=== PATIENT | male | born 1975 | race Caucasian/White ===

== ENCOUNTER 2025-07-31 09:15 | Emergency (ER) | payer OTHER, SELFPAY ==
--- OUTSIDE RECORDS SUMMARY | 2025-07-31 09:17 | XMS_ITS | Clinical Summary ---
Author Organization [facility] Address [address] [place] [id number] Care Team Providers Care Telephone Operator Receptionist Name Role Phone Unavailable Primary Care Provider Unavailabl e Social History Tobacco Use Types Packs/Day Years Used Date Smoking Tobacco: Never Assessed Sex and Gender Information Value Date Recorded Sex Assigned at Not on file Legal Sex Male 8:11 PM CDT Gender Identity Not on file Sexual Orientation Not on file Plan of Treatment Health Maintenance Due Date Last Done Comments Colorectal Cancer Screening Colonoscopy (10 Years) 1976 Annual Physical 1979 Hepatitis C 1994 DTaP, Tdap and Td Vaccines ( 1 - Tdap) 1995 Hepatitis B Vaccines (1 of 3 - 19+ 3-dose series) 1995 COVID-19 Vaccine ( - 2023-2 5 season) 2025 Influenza Adult (#1) 2025 Meningococcal B Vaccine Aged Out No l onger eligible based on patient's age to complete this topic Meningococcal Vaccine Aged Out No atif deirdre eligible based on patient's age to complete this topic Pneumococcal Vaccine: Pediat rics (0 to 5 Years) and At-Risk Patients (6 to 49 Years) Aged Out No longer eligible b ased on patient's age to complete this topic RSV Immunizations Under 20 Months Aged Out No longer eligible based on patient's age to complete this topic
[2025-07-31 09:24] VITALS: BP 185/92; PULSE 93; RESP 18; TEMP 36.9; O2SAT 99
--- NOTE | 2025-07-31 09:59 | ED.GENADULT ---
HPI - General Adult General Chief complaint: Extremity Injury, Upper Stated complaint: right rib pain Time Seen by Provider: 07/31/25 09:59 Source: patient Mode of arrival: ambulatory Limitations: no limitations History of Present Illness HPI narrative: 49-year-old male presented for complaint of right lower rib pain on the inside. Onset 2 weeks. says pain is constant, rates 5/10. Pain is worse after eating. Denies injury or illness. Denies associated nausea, vomiting, diarrhea, constipation, cough, shortness of breath, fevers or lethargy. Taking Tylenol ibuprofen and Aleve. No PCP. No abdominal surgeries. Related Data Home Medications ?Medication ?Instructions ?Recorded ?Confirmed ?Last Taken ?Type No Home Medications 07/31/25 07/31/25 Unknown History Allergies Allergy/AdvReac Type Severity Reaction Status Date / Time banana Allergy Severe Anaphylaxis Verified 07/31/25 09:34 jain Allergy Severe Anaphylaxis Verified 07/31/25 09:34 peas Allergy Severe Anaphylaxis Verified 07/31/25 09:34 watermelon Allergy Severe Anaphylaxis Verified 07/31/25 09:34 Review of Systems Review of Systems: CONSTITUTIONAL: Denies body aches, fever, chills, or sweats. EYES: Denies visual changes, redness, or discharge. CARDIOVASCULAR: Denies chest pain, palpitations, or edema. RESPIRATORY: Denies cough or dyspnea. GASTROINTESTINAL: reports RUQ abdominal pain, denies nausea, vomiting, or diarrhea. GENITOURINARY: Denies dysuria or hematuria. SKIN: Denies rash NEUROLOGIC: Denies headache, numbness, tingling, or weakness. All systems reviewed & are unremarkable except as noted in HPI and below PMFSH Comments At time of signature, I have reviewed and agree with nursing past medical, surgical, social and family history unless otherwise noted. Please see nursing chart for further information. There is no relevant family history pertinent to the presenting complaint Exam Narrative: GENERAL: Well-appearing, well-nourished, and in no acute distress. EYES: EOMI. No redness or drainage. Conjunctivae normal. ENT: Mucous membranes pink and moist. CHEST: No respiratory distress. Clear to auscultation. HEART: Regular rate and rhythm. No murmur appreciated. Normal peripheral pulses. ABDOMEN: RUQ tender with palpation. Soft, nondistended, normal active bowel sounds. SKIN: Warm, dry, no rash. Capillary refill normal. Normal skin turgor. NEURO: No focal deficits. Alert and oriented x3. Gait steady. PSYCH: Normal affect. Course Course Emergency Course: Patient is aware of diagnosis, understands and agrees to treatment plan. Anticipatory guidance given. Patient agrees to follow-up as directed and is aware of reasons to seek care at the emergency department. Portions of this record may have been created with voice recognition software Level of Care: Express Care Visit Vital Signs Vital signs: Vital Signs Temperature 98.5 F 07/31/25 09:24 Pulse Rate 93 07/31/25 09:24 Respiratory Rate 18 07/31/25 09:24 Blood Pressure 185/92 H 07/31/25 09:24 Pulse Oximetry 99 07/31/25 09:24 Oxygen Delivery Room Air 07/31/25 09:24 Temperature 98.5 F 07/31/25 09:24 Pulse Rate 93 07/31/25 09:24 Respiratory Rate 18 07/31/25 09:24 Blood Pressure 185/92 H 07/31/25 09:24 Pulse Oximetry 99 07/31/25 09:24 Oxygen Delivery Room Air 07/31/25 09:24 Medical Decision Making MDM Narrative Medical decision making narrative: Discussed physical exam findings c/w RUQ pain concern for cholecystitis. Advised ER transfer. Pt declines at this time and is aware of the risk. The patient is AA&Ox3. 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 Given the patients presentation, we communicated our concern for RUQ pain in laymans terms. The patient verbalized an understanding. The patient is aware the evaluation is incomplete & many troublesome conditions have not been r/o. We have discussed the need for further ED workup. We have discussed the range of possible dx, potential testing & treatment options. Our discussions included the potential outcomes of leaving AMA, including worsening of their condition, becoming permanently disabled/in pain/critically ill, or . Despite these efforts, we were unable to convince the pt to go to the ER. We have attempted to offer tx/rx/guidance for any dangerous conditions which are most likely and/or dangerous. We have answered all questions and have implored the patient to go to ER [facility] to complete the w/u. A staff member witnessed the patient consenting to AMA. Differential Diagnosis Differential Diagnosis: Consider gastroenteritis, GERD, bowel obstruction or perforation, cholecystitis, appendicitis, hernia, mesenteric ischemia, pancreatitis, peritonitis, AAA Vital Signs Vital Signs: Vital Signs Temperature 98.5 F 07/31/25 09:24 Pulse Rate 93 07/31/25 09:24 Respiratory Rate 18 07/31/25 09:24 Blood Pressure 185/92 H 07/31/25 09:24 Pulse Oximetry 99 07/31/25 09:24 Oxygen Delivery Room Air 07/31/25 09:24 Temperature 98.5 F 07/31/25 09:24 Pulse Rate 93 07/31/25 09:24 Respiratory Rate 18 07/31/25 09:24 Blood Pressure 185/92 H 07/31/25 09:24 Pulse Oximetry 99 07/31/25 09:24 Oxygen Delivery Room Air 07/31/25 09:24 reviewed Discharge Plan Discharge Clinical Impression: Right upper quadrant abdominal pain Patient Disposition: Left Against Medical Advice Condition: Stable Instructions: Cholecystitis (ED), Low Fat Diet (ED), Hypertension (ED) Additional Instructions: Your blood pressure reading was elevated (above 120/80) please establish and follow-up with a primary care provider for further evaluation and management. If you develop worsening Blood Pressure symptoms, (headache, vision changes, dizziness, vomiting, chest pain, etc) go to the ER. Call 911. You were advised to transfer to the ER and you decline at this time. You were made aware of the risk of refusal including worsening of your condition and . Stay hydrated. Take small sips of fluid containing electrolytes frequently. Clear liquids (broth, jello, tea, sprite, pedialyte) [place] foods (bananas, rice, applesauce, toast, crackers) Avoid fatty, greasy, fried or spicy foods. Limit dairy until symptoms are improved. Recommend Motrin 600mg every 8 hours x3 days Heating pad to the site as needed You should go to the hospital if you experience persistent nausea and vomiting that does not resolve and does not allow you to tolerate any food or fluids, fevers, increasing abdominal pain, persistent diarrhea, dizziness, fainting, or for any other concerns. Follow up with primary care provider in 3 days. Patient Language: Estonian Prescriptions: No Action No Home Medications Follow-up/Referrals: UNKNOWN,DOCTOR [Primary Care Provider] Time of Disposition: 10:10
== END 2025-07-31 10:13 | disposition left against medical advice (07) ==
PROVIDERS: Emergency Provider Nurse Practitioner Family
DX: R10.11 Right upper quadrant pain (principal)
CPT/HCPCS: 99202; G0463

== ENCOUNTER 2025-08-02 16:28 | Emergency (ER) | payer OTHER, SELFPAY ==
--- OUTSIDE RECORDS SUMMARY | 2025-08-02 16:31 | XMS_ITS | Clinical Summary ---
Author Organization [facility] Address [address] [place] [id number] Care Team Providers Care Coffee Shop Manager Name Role Phone Unavailable Primary Care Provider [...]
[2025-08-02 16:46] VITALS: BP 184/103; PULSE 89; RESP 16; TEMP 36.7; O2SAT 98
--- NOTE | 2025-08-02 16:48 | ECG_ITS ---
Test Date: 2025-08-02 16:50:00 Measurements Intervals [place] Rate: 87 P: 9 NE: 211 QRS: 36 QRSD: 109 T: 32 QT: 383 QTc: 463 Interpretive Statements SINUS RHYTHM WITH FIRST DEGREE AV BLOCK DELAYED PRECORDIAL R/S TRANSITION BASELINE ARTIFACT- I, III, AVR, AVL, AVF BORDERLINE ECG No previous ECG available for comparison Electronically Signed On 08-02-2025 19:03:44 CDT by Holden Michaels D.O.
--- NOTE | 2025-08-02 18:47 | PC.NURSE ---
pt to desk, states he is leaving dur to wait time. pt encouraged to stay, but pt adament to leave. pt advised to return if symptoms get worse, verbalized understanding
--- OUTSIDE RECORDS SUMMARY | 2025-08-02 19:01 | XMS_ITS | Clinical Summary ---
Author Organization [facility] Address [address] [place] [id number] Care Team Providers Care Advertising Copywriter Name Role Phone Unavailable Primary Care Provider [...]
== END 2025-08-02 18:47 | disposition left against medical advice (07) ==
LOC: ANHED 19:00
PROVIDERS: Emergency Provider Student in an Organized Health Care Education/Training Program
DX: R10.11 Right upper quadrant pain (principal)
CPT/HCPCS: 93005; 99199